=== PATIENT | female | born 1940 | race Caucasian/White ===

== ENCOUNTER → 2020-07-28 11:03 | Outpatient (BNVA) | payer SELFPAY | PROVIDERS: PCP Internal Medicine; Visit Provider Hospitalist | DX: Z13.89 Encounter for screening for other disorder (principal) ==

== ENCOUNTER → 2020-12-30 13:22 | Outpatient (BNVA) | payer MEDICARE, SELFPAY | PROVIDERS: PCP Internal Medicine; Visit Provider Hospitalist | DX: J30.9 Allergic rhinitis, unspecified (principal); J45.40 Moderate persistent asthma, uncomplicated; I50.22 Chronic systolic (congestive) heart failure | CPT/HCPCS: 99212 ==

== ENCOUNTER → 2021-06-30 14:34 | Outpatient (BNVA) | payer MEDICARE, SELFPAY | PROVIDERS: PCP Internal Medicine; Visit Provider Hospitalist | DX: J45.40 Moderate persistent asthma, uncomplicated (principal); J30.9 Allergic rhinitis, unspecified; I50.22 Chronic systolic (congestive) heart failure; I48.91 Unspecified atrial fibrillation; M85.80 Other specified disorders of bone density and structure, unspecified site; Z95.0 Presence of cardiac pacemaker; Z88.2 Allergy status to sulfonamides; Z88.8 Allergy status to other drugs, medicaments and biological substances; J30.1 Allergic rhinitis due to pollen; Z88.1 Allergy status to other antibiotic agents; Z91.013 Allergy to seafood; Z79.899 Other long term (current) drug therapy | CPT/HCPCS: 99212 ==

== ENCOUNTER → 2022-08-25 09:32 | Outpatient (BNVA) | payer MEDICARE, SELFPAY | PROVIDERS: PCP Internal Medicine; Visit Provider Hospitalist | DX: J45.40 Moderate persistent asthma, uncomplicated (principal); J30.9 Allergic rhinitis, unspecified; I50.22 Chronic systolic (congestive) heart failure; Z79.899 Other long term (current) drug therapy | CPT/HCPCS: Q3014 ==

== ENCOUNTER 2024-10-10 10:21 | Outpatient (AMB) | payer MEDICARE, SELFPAY ==
--- NOTE | 2024-10-10 10:26 | MHC.OFFVIS ---
Vital Signs 10/10/24 10:28 Height 5 ft 3 in BMI Reason not done Patient refused/unable BP 140/72 H Blood Pressure Location Lt brachial Position Sitting Pulse 86 Pulse Source Pulse Oximeter Pulse Oximetry (%) 98 Oxygen Delivery Method Room Air Intake Visit Reasons: Asthma Allergies amoxicillin [Prevpac] Allergy (Severe, Verified 10/10/24 10:33) Rash/Hives clarithromycin [Prevpac] Allergy (Severe, Verified 10/10/24 10:33) Rash/Hives lansoprazole [Prevpac] Allergy (Severe, Verified 10/10/24 10:33) Rash/Hives Cephalosporins Allergy (Severe, Uncoded 10/10/24 10:33) Rash/Hives Fish Allergy (Severe, Uncoded 10/10/24 10:33) Rash/Hives Grass Allergy (Severe, Uncoded 10/10/24 10:33) Rash/Hives Penicillins Allergy (Severe, Uncoded 10/10/24 10:33) Rash/Hives Sulfa Drugs Allergy (Severe, Uncoded 10/10/24 10:33) Rash/Hives Talwin Allergy (Severe, Uncoded 10/10/24 10:33) Rash/Hives Tetanus Toxoid Allergy (Severe, Uncoded 10/10/24 10:33) Rash/Hives HPI Comments Details: The patient is a 84 year-old woman with a known history of moderate persistent asthma in addition to atrial fibrillation. The patient states that she does not want to take inhaled corticosteroid if she can avoid it due to her issues with osteopenia. She had been on Symbicort before. Now she is using Xopenex twice a day. Recently she was seen [facility] for her worsening asthma s ymptoms and congestion. Apparently had a chest x-ray. Now she is feeling more sinus congestion and some sinus headaches. She is not sure if she is having allergies or if she has a upper respiratory illness. Her Xopenex inhaler has been helping. However, she would like something to help with her nasal congestion.he has significant allergies growing up and she did take allergy shots for many years. When she developed atrial fibrillation she has to stop the allergy shots because of the risk reactions and the inability to tolerate epinephrine. Subsequently after that she has been doing okay except more recently she started developing significant a topic dermatitis significant nasal congestion and also developed evidence Raynaud's phenomena along with discoloration her nail beds. She has a positive ROBERT in the past and this brings up the question of scleroderma limited. 04/09/2020 the the patient has a telephone visit. Overall she is doing well from a respiratory status. However, she is concerned about the fall. Usually in the fall she has a worse time. She had been on Symbicort before however because of the atrial fibrillation will take her off it and place her on Xopenex. At this point we can start inhaled cortical steroid with hopes to minimize exacerbations inflammation to the airways. She should continue with Xopenex for now. She continues to follow-up with dermatology regarding her eczema. She knows she has significant allergies. Although, and are allergy blood tests her IgE level significantly elevated but now on other specific allergy exposures were positive. She would need proper skin testing. 07/28/2020 the patient is a telephone visit. Overall she has been doing well from a respiratory status. She did get away on short vacation she forgot to take her allergy medications. Apparently she did well. Therefore she did not restart her medicines. Usually her symptoms are worse during the spring time. We did talk about considering allergy evaluation was the COVID-19 infections subside. At this point the patient is doing well without any other complaints. Her cardiac status is stable as well. 12/30/2020 the patient is here for pulmonary follow-up visit. Overall she is doing okay from a respiratory status. She continues to use her Flovent. She does not have a short-acting beta agonist. At this point she would like to hold off on 1 due to her concerns with the atrial fibrillation. She has follow-up with her negative developer in did have smoking about considering a pacemaker placement. At this point the patient would like to hold off. She is also dealing with congestive heart failure. She was started on diuretics regularly. Her lower extremity edema has improved. However, she did stand up in became flushed due to lower blood pressures. She also has had electrolyte derangements from diuretics in the past. In regards of her allergies she continues to take her singular and also fluticasone in the Astelin nasal spray. This has been helpful. At this point the patient will undergo blood work. 06/30/2021 the patient is here for a pulmonary follow-up visit. Since we last spoke she did undergo an ablation and a pacemaker placement. She still does complaint of shortness of breath. We did go for brief walking oximetry in the patient maintain a pulse ox of 98% and heart rate in the 100s. Patient now is paste. She is still in AFib based on her negative developer. She continues on the Flovent with good effect. She does avoid her short-acting beta agonist. She does not always take her Lasix. She does have lower extremity edema. She continues with her allergy medicine. Usually the winter is a good month for her. I did provide her with a peak flow so she can assess her airway resistance specially if she is not sure if her shortness of breath is from her asthma or her underlying cardiac condition. 10/10/2024 the patient is here for a pulmonary follow-up visit. Overall she is doing well. She has been using her Flovent as prescribed. She is also using fluticasone nasal spray as needed. She has continued to singular at nighttime. She no longer takes the Claritin. She has not required her rescue inhaler but she is concerned about her atrial fibrillation and going to rapid ventricular response. Therefore hold off on sending her any prescriptions at this time. She can always call me and I can send her rescue inhaler and we can consider Xopenex. She has been on the Flovent for many years and she tolerated well. I will go ahead and send the generic formulation of it. As far as imaging studies she did have a fall and she had x-rays of her shoulder back in 2023 which I personally reviewed. Demonstrated that she had a pulmonary nodular opacity. I did also compared with the x-ray that she had back from 2015 demonstrating that the nodular density was there before therefore consistent with stable process. The patient has plantar doing well so will hold off on further imaging at this time. She will continue with respiratory medicines will follow-up in a year's time. She has not issues prior to that she will call for an earlier assessment. [facility] Medical History (Updated 10/11/24 @ 09:13 by Francisco Thompson MD) CHF (congestive heart failure) Chronic allergic rhinitis Asthma Family History (Updated 12/30/20 @ 13:42 by Francisco Thompson MD) Other Asthma Social History Patient Tobacco Use Status: Never used Tobacco Review of Systems Const Denies night sweats ENT Denies change in voice, Denies lip swelling, Denies mouth pain, Reports nasal congestion, Reports nasal discharge and Denies tongue swelling Card Denies chest pain, Denies syncope and Denies dyspnea on exertion Resp Reports cough and Denies dyspnea on exertion GI Denies abdominal pain Musc Denies no additional complaints Skin/Breast Denies rash Neuro Denies Neuro-related abnormal movements and Denies syncope Psych Denies no additional complaints Bebo/Lymph Denies easy bleeding and Denies lymphadenopathy Aller/Immun Denies lip swelling and Denies tongue swelling Physical Exam Vital Signs: Last Vital Signs Pulse 86 10/10/24 10:28 BP 140/72 H 10/10/24 10:28 Pulse Ox 98 10/10/24 10:28 Oxygen Delivery Method Room Air 10/10/24 10:28 Const General: alert Neck Neck: Yes normal visual inspection, Yes full ROM and Yes no lymphadenopathy Chest Chest palpation & inspection: normal inspection of the chest Resp Effort & Inspection: normal respiratory effort Auscultation: diminished lung sounds Cardio Rate: regular rate Rhythm: regular rhythm Heart sounds: S1 normal heart sound present and S2 normal heart sound present GI Palpation (GI): Soft to palpation and nontender Auscultation: normal bowel sounds Skin General skin exam: rashes and/or lesions noted Assessment & Plan Assessment & Plan (1) Chronic allergic rhinitis: Code(s): J30.9 - Allergic rhinitis, unspecified Category: Medical (2) Asthma: Code(s): J45.909 - Unspecified asthma, uncomplicated Category: Medical Qualifiers: Asthma complication type: uncomplicated Asthma persistence: persistent Asthma severity: moderate Qualified Code(s): J45.40 - Moderate persistent asthma, uncomplicated (3) CHF (congestive heart failure): Comment: better Code(s): I50.9 - Heart failure, unspecified Category: Medical Qualifiers: Heart failure chronicity: chronic Heart failure type: systolic Qualified Code(s): I50.22 - Chronic systolic (congestive) heart failure Plan continue flovent 110 2 puff BID Consider xopenex as needed Continue claritin and singulair fluticasone nasal spray CXR stable nodule F/U 8-12 months Medications: New levalbuterol tartrate 45 mcg/actuation (Xopenex HFA) 2 puffs inhalation Q6H PRN 15 grams 11RF shortness of breath or wheezing 30 days J45.909 - Unspecified asthma, uncomplicated Changed From fluticasone propionate 110 mcg/actuation (Flovent HFA) 2 puffs PO BID 30 days 12 grams 11RF To fluticasone propionate 110 mcg/actuation 2 puffs PO BID 12 grams 11RF 30 days Refilled fluticasone propionate 50 mcg/actuation 2 sprays intranasal DAILY 15.8 mL 11RF 30 days J31.0 - Chronic rhinitis Coding Level of Care Code Est Pt Level 4 (03430) Diagnoses Chronic allergic rhinitis J30.9 Moderate persistent asthma without complication J45.40 Asthma complication type: uncomplicated Asthma persistence: persistent Asthma severity: moderate Chronic systolic congestive heart failure I50.22 Heart failure chronicity: chronic Heart failure type: systolic Time Spent (min) 16
[2024-10-10 10:28] VITALS: BP 140/72; PULSE 86; O2SAT 98
--- OUTSIDE RECORDS SUMMARY | 2024-10-10 11:38 | XMS_ITS ---
Author Organization [facility] Address [address] [place] [address] Phone Care Team Providers Care Database Security Expert Name Role Phone Elsi Buckley MD Primary Care Provider [phone] [facility] Un[facility] [phone] Plan of Treatment No Plan of Treatment Recorded Assessments Includes: Assessments for all patient encounters No Assessments Recorded Medical Equipment - Implanted Devices Includes: Current and historical Devices No Medical Equipment Recorded Medications Includes: Current and historical Medications Current Medications (continue as prescribed) Acetaminophen 325 MG Oral Capsule 11/23/2022 Provide r: Diagnosis: Last Documented On 3 11:23AM By Jah Lyman ; [facility] Symbicort unknown Inhalation Inhaler 06/20/2018 Prov ider: Diagnosis: Last Documented On 8 1:45PM By Argenis Maxwell ; [facility] Atorvastatin Calcium 10MG Oral Tablet 06/20/2018 Pro vider: Diagnosis: Last Documented On 8 1:52PM By Argenis Maxwell ; [facility] Xarelto 20MG Oral Tablet 06/20/2018 Provider: Diagnosis: Last Documented On 8 1:52PM By Argenis Maxwell ; [facility] Medications Administered Includes: Administered Medications in patient's chart No Administered Medications Recorded Results Includes: Results from 10/10/2023 through 10/10/2024 No Results Recorded For Specified Dates History of Present Illness History of Present Illness not supported for this document type No History of Present Illness Recorded Social History No Social History Recorded - Smoking Status Unknown Medical History Includes: Medical History in patient's chart No Medical History Recorded Family History Includes: Family History in patient's chart No Family History Recorded Review of Systems Review of Systems not supported for this document type No Review of Systems Recorded Mental Status No Mental Status Recorded Functional Status No Functional Status Recorded Physical Exam Physical Exam not supported for this document type No Physical Exam Recorded Allergies Includes: Active, inactive, and resolved Allergies Substance Type Reaction Onset Date Resolved Date Statu s Tetanus Toxoid [MANUAL] Allergy 06/20/2018 Active Last Documented On 8 1:41PM ; [facility], Sulfa Antibiotics Allergy 06/20/2018 A ctive Last Documented On 8 1:41PM ; [facility], seafood Allergy 06/20/2018 Active Last Documented On 8 1:43PM ; [facility], pentamidine Allergy 06/20/2018 Active Last Documented On 8 1:42PM ; [facility]note 3], penicillin [MANUAL] Allergy 06/20/2018 Active Last Documented On 8 1:40PM ; [facility][note 3], Nitrates, Organic Allergy 06/20/2018 A ctive Last Documented On 8 1:41PM ; [facility], mushrooms Allergy 06/20/2018 Active Last Documented On 8 1:42PM ; [facility][note 3], PC Cephalexin Allergy 06/20/2018 Active Last Documented On 8 1:43PM ; [facility], Insurance Includes: Active Insurance Policies Plan Name Member ID Group # Subscriber Relationship Effect jairo Dates - [facility] [id number] Baldev Mitchell Clinical Notes Includes: Signed Clinical Notes starting from 07/23/2022 No Clinical Notes Recorded
--- OUTSIDE RECORDS SUMMARY | 2024-10-10 11:38 | XMS_ITS ---
Care Plan - [facility] Created on: October 10, 2024 Baldev Mead : 1940 Sex: Female Author Organization [facility] Address [address] [place] [address] Phone Care Team Providers Care Lightning Rod Installer Name Role Phone Ina QUINTANA, Elsi Primary Care Provider [phone] [facility] Unavailable [phone]
--- OUTSIDE RECORDS SUMMARY | 2024-10-10 11:38 | XMS_ITS | Clinical Summary ---
Author Organization [facility] Address [address] [place] [id number] Care Team Providers Care Tube Test Technician Name Role Phone Elsi Buckley MD Primary Care Provide r Allergies Active Allergy Reactions Criticality Noted Date Comments Cephalexin 04/09/2018 Sulfa Antibiotics 04/09/2018 Medications Medication Sig Dispensed Refills Start Date End Date Status rivaroxaban (XARELTO) 15 MG TABS tablet Take 20 mg by mouth. 0 Acti ve metoprolol tartrate (LOPRESSOR) 12.5 MG split tablet Take by mouth 2 (two) times a day. 0 Active flecainide (TAMBOCOR) 50 MG tablet Take 50 mg by mouth 2 (two) times a day. 0 Active ATORVASTATIN CALCIUM 20 MG PO TABS Take 20 mg by mouth every evening. 0 Active Budesonide-Formotero l Fumarate (SYMBICORT IN) Inhale into the lungs. 0 Active SENNA CO by Combination route. 0 Active Active Problems Problem Noted Date Diagnosed Date Malignant neoplasm of lower- inner quadrant of right female breast 02/06/2017 Family History Medical History Relation Name Comments Heart disease Father Relation Name Status Comments Father Mother Social History Tobacco Use Types Packs/Day Years Used Date Smoking Tobacco: Never Smokeless Tobacco: Never Alcohol Use Standard Drinks/Week Comments No 0 (1 standard drink = 0.6 oz pur e alcohol) Sex and Gender Information Value Date Recorded Sex Assigned at Not on file Gender Identity Not on file Sexual Orientation Not on file Job Start Date Occupation Industry Not on file Not on file Not on file Last Filed Vital Signs Vital Sign Reading Time Taken Comments Blood Pressure 155/41 04/25/2019 3:07 PM EDT Pulse 71 04/25/2019 3:07 PM EDT Temperature - - Respiratory Rate - - Oxygen Saturation - - Inhaled Oxygen Concentration - - Weight 55.8 kg (123 lb) 04/25/2019 3:06 PM EDT Height 161.3 cm (5' 3.5 ) 04/09/2018 3:29 PM EDT Body Mass Index 21.45 04/09/2018 3:29 PM EDT Plan of Treatment Health Maintenance Due Date Last Done Comments COVID-19 Vaccine (#1) 02/06/1945 Depression Screening 1952 Preventative Health Evaluation 02/06/1958 DTap / Tdap / Td (1 - Tdap) 02/06/1959 Shingrix-Zoster Vaccine (1 of 2) 02/06/1959 Fall Risk Assessment 02/06/2005 Osteoporosis Screening (DEXA Scan) 02/06/2005 RSV Adult > 60+ Yrs or Pregn ant (1 - 1-dose 75+ series) 02/06/2015 Pneumococcal Vaccine (2 of 2 - PPSV23 or PCV20) 07/13/2016 05/18/2016 Influenza Vaccine (#1) 2024 05/15/2017 Hepatitis B Vaccines Aged Out No long er eligible based on patient's age to complete this topic RSV Ped < 20 months Aged Out No longe r eligible based on patient's age to complete this topic Care Teams Tube Test Technician Relationship Specialty Start Date End Date Elsi Buckley MD PCP - General Internal Medicine 01/26/17
--- OUTSIDE RECORDS SUMMARY | 2024-10-10 11:38 | XMS_ITS | Clinical Summary ---
Author Organization [place] [facility] Address [address] [place] [id number] Phone Care Team Providers Care Electronic Typesetting Machine Operator Name Role Phone Ina QUINTANA, Elsi Primary Care Provider [phone] [facility] [phone] Reason for Visit and Chief Complaint Medicare New Patient Plan of Treatment Pending Tests Order Diagnosis Results Due Ordering P audie Follow Up - Appointment 1 Week Oth disp fx of upper end of right humerus, init for clos fx 11/23/22 Ricky Claire MD Last Documented On 3 10:01AM ; [facility] Assessments Includes: Assessments from this encounter No Assessments Recorded Medical Equipment - Implanted Devices Includes: Current Devices No Medical Equipment Recorded Medications Includes: Medications discussed during this encounter and other current Medications Current Medications (continue as prescribed) Acetaminophen 325 MG Oral Capsule 11/23/2022 Provide r: Diagnosis: Last Documented On 3 11:23AM By Jah Lyman ; [facility] Symbicort unknown Inhalation Inhaler 06/20/2018 Prov ider: Diagnosis: Last Documented On 8 1:45PM By Argenis Maxwell ; [facility] Atorvastatin Calcium 10MG Oral Tablet 06/20/2018 Pro vider: Diagnosis: Last Documented On 8 1:52PM By Argenis Maxwell ; [facility] Xarelto 20MG Oral Tablet 06/20/2018 Provider: Diagnosis: Last Documented On 8 1:52PM By Argenis Maxwell ; [facility] Medications Administered Includes: Administered Medications from this encounter No Administered Medications Recorded Vital Signs Includes: Vital Signs from this encounter Vital Name 11/23/2022 11:22A Blood Pressure Sitting (mmHg) 158/79 Pulse Rate-Sitting (bpm) 67 Temp-Temporal 97.1 Height (in) 63 Weight (lb) 120 Body Mass Index 21.3 Body Surface Area 1.6 Oxygen Saturation (%) 99 Last Documented: On 11/23/2022 11:22A M ; [place] [facility], Results Includes: Results discussed during this encounter No Results Recorded For Specified Dates History of Present Illness Includes: History of Present Illness from this encounter No History of Present Illness Recorded Social History No Social History Recorded - Smoking Status Unknown Medical History Includes: Medical History addressed during this encounter No Medical History Recorded Family History Includes: Family History addressed during this encounter No Family History Recorded Review of Systems Includes: Review of Systems from this encounter No Review of Systems Recorded Mental Status Includes: Mental Status from this encounter No Mental Status Recorded Functional Status Includes: Functional Status from this encounter No Functional Status Recorded Physical Exam Includes: Physical Exam from this encounter Allergies Includes: Active Allergies Substance Type Reaction Onset Date Resolved Date Statu s Tetanus Toxoid [MANUAL] Allergy 06/20/2018 Active Last Documented On 8 1:41PM ; [facility] Sulfa Antibiotics Allergy 06/20/2018 A ctive Last Documented On 8 1:41PM ; [facility] seafood Allergy 06/20/2018 Active Last Documented On 8 1:43PM ; [facility] pentamidine Allergy 06/20/2018 Active Last Documented On 8 1:42PM ; [facility] penicillin [MANUAL] Allergy 06/20/2018 Active Last Documented On 8 1:40PM ; [facility] Nitrates, Organic Allergy 06/20/2018 A ctive Last Documented On 8 1:41PM ; [facility] mushrooms Allergy 06/20/2018 Active Last Documented On 8 1:42PM ; [facility] Cephalexin Allergy 06/20/2018 Active Last Documented On 8 1:43PM ; [facility] Encounters Encounter Provider Location Date Check-In Time Check-Out Time Diagnosis Medicare New Patient Ricky Claire MD [place] [facility] 11/24/19 9:40AM 10:08AM Insurance Includes: Active Insurance Policies Plan Name Member ID Group # Subscriber Relationship Effect jairo Dates 1 - [facility] [id number] Baldev Mitchell Clinical Notes Includes: Clinical Notes from this encounter * Progress note Date Encounter Last Documented by 11/23/2022 Medicare New Patient Last docume nted on 11/23/2022; 10:01 AM, Ricky Claire MD; [facility], Current Medication - Atorvastatin Calcium 10MG Oral Tablet 10 MG 0 days, 0 refills - Symbicort unknown Inhalation Inhaler unknown 0 days, 0 refills - Xarelto 20MG Oral Tablet 20 MG 0 days, 0 refills Allergies - Cephalexin - mushrooms - Nitrates, Organic - penicillin [MANUAL] - pentamidine - seafood - Sulfa Antibiotics - Tetanus Toxoid [MANUAL] Physical Findings Chief complaint: Right shoulder pain History of Present Illness: This is an 82-year-old woman who is the 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 We saw her in 2019 for a fracture of her hip. She presents today with her [id number]. 3 days ago she slipped in the bathroom and fell and struck her right shoulder. She had pain in the shoulder. She was seen at [facility] and was found to have a fracture of her right proximal humerus. She was placed in a sling. I spoke with her son. She reports localized pain in the right shoulder. She denies numbness or tingling. Physical exam: Pleasant elderly woman awake alert and oriented with right shoulder pain. There is moderate swelling of the shoulder and right arm. There is ecchymosis on the proximal arm. There is tenderness of the proximal humerus. There is no elbow tenderness. The skin is otherwise intact. Motor and sensory exams are intact. She has pain with right shoulder motion. There is no pain with elbow motion. Imaging: Radiographs of the right shoulder performed at [facility] on 11/20/2022 are reviewed. There is a comminuted moderately displaced fracture of the right proximal humerus involving the surgical neck and greater tuberosity. No dislocation is appreciated. Impression: Fracture right proximal humerus Plan: We discussed the options of surgical and nonsurgical treatment. I suspect she will have some limitation in shoulder motion with surgical or nonsurgical treatment. After discussion with the patient and the family we elected nonsurgical treatment. I fitted her with a shoulder immobilizer. She should wear that full-time for now. I asked her to return in 1 week for reexamination and x-ray AP and Y views of the right shoulder. Plan StartCited - Oth disp fx of upper end of right humerus, init for clos fx Follow Up/Appointment: 1 Week EndCited
--- OUTSIDE RECORDS SUMMARY | 2024-10-10 11:38 | XMS_ITS | Clinical Summary ---
Author Organization [facility] Address [address] [place] [id number] Phone Care Team Providers Care Customer Solutions Coordinator Name Role Phone Ina QUINTANA, Elsi Primary Care Provider [phone] [facility] Unavailable [phone] Reason for Visit and Chief Complaint Established Patient Plan of Treatment Pending Tests Order Diagnosis Results Due Ordering P audie Follow Up - Appointment 3 weeks Oth disp fx of upper end of right humerus, init for clos fx 11/30/22 Ricky Claire MD Last Documented On 3 10:54AM ; [facility] Assessments Includes: Assessments from this encounter No Assessments Recorded Medical Equipment - Implanted Devices Includes: Current Devices No Medical Equipment Recorded Medications Includes: Medications discussed during this encounter and other current Medications Current Medications (continue as prescribed) Acetaminophen 325 MG Oral Capsule 11/23/2022 Provide r: Diagnosis: Last Documented On 3 11:23AM By Jah Lyman ; [facility] Symbicort unknown Inhalation Inhaler 06/20/2018 Prov ider: Diagnosis: Last Documented On 8 1:45PM By Argenis Maxwell ; [facility] Atorvastatin Calcium 10MG Oral Tablet 06/20/2018 Pro vider: Diagnosis: Last Documented On 8 1:52PM By Argenis Maxwell ; [facility] Xarelto 20MG Oral Tablet 06/20/2018 Provider: Diagnosis: Last Documented On 8 1:52PM By Argenis Maxwell ; [facility] Medications Administered Includes: Administered Medications from this encounter No Administered Medications Recorded Vital Signs Includes: Vital Signs from this encounter Vital Name 11/30/2022 10:22A Blood Pressure Sitting (mmHg) 156/76 Pulse Rate-Sitting (bpm) 63 Temp-Temporal 97.2 Height (in) 63 Weight (lb) 122 Body Mass Index 21.6 Body Surface Area 1.6 Oxygen Saturation (%) 99 Last Documented: On 11/30/2022 10:23A M ; [facility] Results Includes: Results discussed during this encounter [...] Active Last Documented On 8 1:41PM ; [facility] Sulfa Antibiotics Allergy 06/20/2018 A ctive Last Documented On 8 1:41PM ; [facility] seafood Allergy 06/20/2018 Active Last Documented On 8 1:43PM ; [facility] pentamidine Allergy 06/20/2018 Active Last Documented On 8 1:42PM ; [facility] penicillin [MANUAL] Allergy 06/20/2018 Active Last Documented On 8 1:40PM ; [facility] Nitrates, Organic Allergy 06/20/2018 A ctive Last Documented On 8 1:41PM ; [facility] mushrooms Allergy 06/20/2018 Active Last Documented On 8 1:42PM ; [facility] Cephalexin Allergy 06/20/2018 Active Last Documented On 8 1:43PM ; [facility] Encounters Encounter Provider Location Date Check-In Time Check-Out Time Diagnosis Established Patient Ricky Claire MD [facility] 12/01/19 10:00AM 10:58AM Insurance Includes: Active Insurance Policies Plan Name Member ID Group # Subscriber Relationship Effect jairo Dates - [facility] [id number] Baldev Mitchell Clinical Notes Includes: Clinical Notes from this encounter * Progress note Date Encounter Last Documented by 11/30/2022 Established Patient Vic meehan on 11/30/2022; 10:54 AM, Ricky Claire MD; [facility], Current Medication - Acetaminophen 325 MG Oral Capsule 0 days, 0 refills - Atorvastatin Calcium 10MG Oral Tablet 10 MG 0 days, 0 refills - Symbicort unknown Inhalation Inhaler unknown 0 days, 0 refills - Xarelto 20MG Oral Tablet 20 MG 0 days, 0 refills Allergies - Cephalexin - mushrooms - Nitrates, Organic - penicillin [MANUAL] - pentamidine - seafood - Sulfa Antibiotics - Tetanus Toxoid [MANUAL] Physical Findings - Vitals taken 11/30/2022 10:22 am BP-Sitting 156/76 mmHg Pulse Rate-Sitting 63 bpm Temp-Temporal 97.2 F Height 63 in Weight 122 lbs Body Mass Index 21.6 kg/m2 Body Surface Area 1.6 m2 Oxygen Saturation 99 % Chief complaint: Follow-up fracture right proximal humerus History of Present Illness: This is an 82-year-old woman who is the mother of one of our radiologist. She fell and sustained a moderately displaced fracture of the right proximal humerus on 11/20/2022. I saw her on 11/23/2022. Nonsurgical treatment was selected and she is in a shoulder immobilizer. She has no complaints today. Physical exam: The patient still has moderate discomfort with motion of the right shoulder. Skin and neurovascular exams are intact. Imaging: Radiographs of the right shoulder taken today are compared to the prior images. There is a fracture of the surgical neck and greater tuberosity with moderate displacement. There has been no significant change in fracture reduction compared to the initial images. AP, internal rotation, Y-view, and axillary views of the shoulder are included. The glenohumeral joint appears to be reduced. Impression: Fracture right proximal humerus Plan: The patient will continue with the shoulder immobilizer full-time for an additional 3 weeks. She will return at that time for reexamination and x-ray AP and internal rotation views of the right shoulder. We will probably discontinue the sling and begin physical therapy at that time. Plan StartCited - Oth disp fx of upper end of right humerus, init for clos fx Follow Up/Appointment: 3 weeks EndCited
--- OUTSIDE RECORDS SUMMARY | 2024-10-10 11:38 | XMS_ITS | Clinical Summary ---
Author Organization [facility] Address [address] [place] [address] Phone Care Team Providers Care Quality Control Name Role Phone Elsi Buckley MD Primary Care Provider [phone] [facility] Unavailable [phone] Reason for Visit and Chief Complaint Established Patient Plan of Treatment No Plan of Treatment Recorded Assessments Includes: Assessments from this encounter No Assessments Recorded Medical Equipment - Implanted Devices Includes: Current Devices No Medical Equipment Recorded Medications Includes: Medications discussed during this encounter and other current Medications Current Medications (continue as prescribed) Acetaminophen 325 MG Oral Capsule 11/23/2022 Provide r: Diagnosis: Last Documented On 3 11:23AM By Jah Lyman ; [facility] Symbicort unknown Inhalation Inhaler 06/20/2018 Prov ider: Diagnosis: Last Documented On 8 1:45PM By Argenis Maxwell ; [facility] Atorvastatin Calcium 10MG Oral Tablet 06/20/2018 Pro vider: Diagnosis: Last Documented On 8 1:52PM By Argenis Maxwell ; [facility] Xarelto 20MG Oral Tablet 06/20/2018 Provider: Diagnosis: Last Documented On 8 1:52PM By Argenis Maxwell ; [facility] Medications Administered Includes: Administered Medications from this encounter No Administered Medications Recorded Vital Signs Includes: Vital Signs from this encounter Vital Name 07/07/2019 10:26A Height (in) 63 Weight (lb) 112 Body Mass Index (kg/m2) 19.8 Body Surface Area (m2) 1.5 Last Documented: On 07/07/2019 10:26A M ; [facility], Results Includes: Results discussed during this encounter [...] Active Last Documented On 8 1:41PM ; [facility] Sulfa Antibiotics Allergy 06/20/2018 A ctive Last Documented On 8 1:41PM ; [facility] seafood Allergy 06/20/2018 Active Last Documented On 8 1:43PM ; [facility] pentamidine Allergy 06/20/2018 Active Last Documented On 8 1:42PM ; [facility], penicillin [MANUAL] Allergy 06/20/2018 Active Last Documented On 8 1:40PM ; [facility] Nitrates, Organic Allergy 06/20/2018 A ctive Last Documented On 8 1:41PM ; [facility] mushrooms Allergy 06/20/2018 Active Last Documented On 8 1:42PM ; [facility] Cephalexin Allergy 06/20/2018 Active Last Documented On 8 1:43PM ; [facility], Encounters Encounter Provider Location Date Check-In Time Check-Out Time Diagnosis Established Patient Mat Childs MD [facility] 019 9:51AM 10:18AM Insurance Includes: Active Insurance Policies Plan Name Member ID Group # Subscriber Relationship Effect jairo Dates 1 - [facility] [id number] Baldev Mead Self Clinical Notes Includes: Clinical Notes from this encounter No Clinical Notes Recorded
--- OUTSIDE RECORDS SUMMARY | 2024-10-10 11:38 | XMS_ITS | Clinical Summary ---
Author Organization [facility] Address [phone] [employer] [address] Care Team Providers Care Construction Checker Name Role Phone Elsi Buckley MD Primary Care Provide r Allergies Active Allergy Reactions Criticality Noted Date Comments Cephalexin 04/09/2018 Pentazocine-Aspirin Other (See Comments) 2008 fainting Sulfa (Sulfonamide Antibiotics) 04/09/2018 Tetanus Toxoid Adsorbed Unknown 02/23/2009 Medications Medication Sig Dispensed Refills Start Date End Date Status atorvastatin (LIPITOR) 10 MG tablet Take 20 mg by mouth daily. Active senna (SENNA CONCENTRATE) 8.6 mg tablet Take 8.6 mg by mouth daily. Active budesonide-formoterol (SYMBICORT) 160-4.5 mcg/actuation inhaler Inhale 160 mcg into the lungs daily. Active flecainide (TAMBOCOR) 50 MG tablet Take 150 mg by mouth daily. Active metoprolol tartrate (LOPRESSOR) 25 MG tablet Take 12.5 mg by mouth daily. Active rivaroxaban (XARELTO) 15 mg Tab Take 20 mg by mouth daily. Active polyethylene glycol (MIRALAX) 17 gram packet Take 17 g by mouth daily. Active cholecalciferol (VITAMIN D3) 50,000 unit tabletIndications:take 1 tab every 2 weeks Take by mouth once a week. 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 Not on kirit e 12/16/2022 Are you concerned about learning? Not on file 12/16/2022 No 12/16/2022 No 12/16/2022 Digital Access Answer Date Recorded No 01/07/2023 No 01/07/2023 Reliable internet access at home? Not on file 01/07/2023 Device with a working camera? Not on file Sex and Gender Information Value Date Recorded Sex Assigned at Not on file Gender Identity Not on file Sexual Orientation Not on file Last Filed Vital Signs Vital Sign Reading Time Taken Comments Blood Pressure 180/67 11/29/2018 1:20 PM EDT Pulse 51 11/29/2018 1:20 PM EDT Temperature - - Respiratory Rate - - Oxygen Saturation - - Inhaled Oxygen Concentration - - Weight 55.3 kg (122 lb) 11/29/2018 1:20 PM EDT Height 160 cm (5' 3 ) 11/29/2018 1:20 PM EDT Body Mass Index 21.61 11/29/2018 1:20 PM EDT Plan of Treatment Health Maintenance Due Date Last Done Comments BLOOD PRESSURE 1940 HEPATITIS B SCREENING 02/06/1958 PNEUMOCOCCAL VACCINES (50+ years) (1 of 2 - PCV) 02/06/1959 ZOSTER VACCINES (1 of 2) 02/06/1990 OSTEOPOROSIS SCREENING INITIAL (ONE-TIME) 02/06/2005 CREATININE LEVEL 11/30/2019 11/29/2018 DEPRESSION SCREENING 11/30/2019 11/29/2018 INFLUENZA VACCINE (#1) 2024 , 05/31/2022, 06/07/2021, Additional history exists COVID-19 VACCINE ( season) 2024 05/15/2023, 05/08/2022, 12/13/2021, Additional history exists RSV VACCINE Completed 06/20/2023 HEPATITIS A VACCINES Aged Out No long er eligible based on patient's age to complete this topic HEPATITIS B VACCINES Aged Out No long er eligible based on patient's age to complete this topic HIB VACCINES Aged Out No longer eligi ble based on patient's age to complete this topic MENINGOCOCCAL VACCINES (ACWY) Aged Out No longer eligible based on patient's age to complete this topic Medical Devices Not on file Procedures Procedure Name Priority Date/Time Associated Diagnosis Comments CREATININE/EGFR Routine 11/29/2018 2:34 PM EDT Age related osteoporosis, unspecified pathological fracture presence from Last 3 Months or Most Recently Relevant to Health Maintenance Results * (ABNORMAL) Creatinine/eGFR (11/29/2018 2:34 PM EDT) CREATININE 1.01 0.50 - 1.20 mg/dL [facility] EGFR 53(L) >59 mL/min/1.7 3m2 [facility] Comment:If patient is black, multiply result by 1.159. Estimated glomerular filtration rate calculated using the CKD-EPI equation. Blood 11/29/2018 2:34 PM EDT 11/29/2018 8:05 PM EDT Jelena Olivares MD LAB BLOOD ORDERABLES [facility] [address] [place] [phone] from Last 3 Months or Most Recently Relevant to Health Maintenance Care Teams Construction Checker Relationship Specialty Start Date End Date Elsi Buckley MD PCP - General Geriatric Psychiatry 08/27/18 Additional Source Comments The information contained in this document represents components of the legal health record. It is not the complete legal health record.[facility]
--- OUTSIDE RECORDS SUMMARY | 2024-10-10 11:38 | XMS_ITS | Clinical Summary ---
Author Organization [address] [place] [address] [place] [phone] Phone Care Team Providers Care Sheet Roller Operator Name Role Phone Elsi Buckley MD Primary Care Provider [phone] Allergies Active Allergy Reactions Criticality Noted Date Comments Cephalexin 12/09/2020 Cephalosporins 11/13/2017 Codeine 12/09/2020 Esomeprazole Magnesium 01/22/2007 vaginal bleeding Fish Derived 01/22/2007 anaphalaxis Grass Pollen-Red Top, Standard 02/18 Mushroom 12/09/2020 Omeprazole 01/22/2007 vaginal bleeding Other 12/09/2020 Organic Nitrates Penicillins 11/13/2017 Pentazocine Lactate 01/22/2007 anaphalaxis Shellfish Derived 12/09/2020 Simvastatin 12/09/2020 Sulfa (Sulfonamide Antibiotics) 10/11 Tetanus Toxoid 01/22/2007 lympadenopathy Medications acetaminophen (TYLENOL) 325 mg tablet Take 650 mg by mouth every 6 hours as needed. Active albuterol HFA (PROAIR HFA ; PROVENTIL HFA ; VENTOLIN HFA) 90 mcg/actuation inhaler Inhale 2 Puffs into the lungs every 4 hours as needed. Active calcium carbonate-vitam in D3 600 mg-5 mcg (200 unit) per tablet Take 1 tablet by mouth daily. 04/03/2017 Active cyanocobalamin (VITAMIN B-12) 2,000 mcg tablet Take 1 Tab by mouth daily. 11/16/2017 Active folic acid (FOLVITE) 1 mg tablet TAKE 1 TABLET DAILY 11/25/2018 Active furosemide (LASIX) 20 mg tablet TAKE 1/2 TABLET BY MOUTH DAILY - PT ONLY TAKES NEEDED FOR LEG EDEMA 07/28/2022 Active metoprolol succinate (TOPROL-XL) 25 mg 24 hr tablet TAKE 1 TABLET BY MOUTH EVERY DAY 05/12/2024 Active senna (SENOKOT) 8.6 mg tablet Take 8.6 mg by mouth daily. 10/23/2016 Active Xarelto 15 mg tablet TAKE 1 TABLET BY MOUTH DAILY. WITH LARGEST MEAL OF THE DAY 90 tablet 2 07/16/2024 Active chlorthalidone (HYGROTON) 25 mg tablet TAKE 1 TABLET BY MOUTH EVERY DAY 90 tablet 3 07/16/2024 Active Active Problems Problem Noted Date Diagnosed Date Coronary artery disease 09/14/2022 Overview (07/04/2024): Coronary disease with a catheterization 2015. She had moderate nonocclusive disease. The cath was done due to a stress-induced cardiomyopathy. She has been on a statin dose but did stop it due to muscle aches. She generally does eat fairly healthy from a diet standpoint. She has no active angina. Last Assessment & Plan: No active angina currently. No signs of infarct by twelve-lead ECG criteria. We discussed potentially using a drug such as Repatha if she cannot tolerate a statin. She will continue a healthy diet and we will recheck a lipid profile. Continue metoprolol and Xarelto. Second degree AV block, Mobitz type I 09/14/2022 Overview (07/04/2024): Type I second-degree AV block. Pacemaker in place. Previously has been placed in a dual-chamber mode but did not do well with ventricular pacing. She was reprogrammed to in early 2021 VVI to allow intrinsic conduction and despite a very long AV delay which is not physiologic she does tend to feel better this way. Last Assessment & Plan: Currently in atrial fibrillation with variable conduction and intermittent demand pacing. Anticoagulated with Xarelto and tolerating well with no bleeding. Continue to monitor A-fib burden and ventricular response through pacemaker recordings. Closed fracture of left hip 06/20/2018 Helicobacter pylori gastritis 04/18/2018 Atrophic gastritis 04/08/2018 Chronic lower back pain 02/25/2018 Constipation 11/13/2017 Asthma 04/26/2017 Allergic rhinitis 04/03/2017 Restrictive lung disease 04/03/2017 Hyponatremia 03/05/2017 Paroxysmal atrial fibrillation 02/19/2017 Overview (07/04/2024): Long history of paroxysmal atrial fibrillation.She is status post ablation in [place] in 2016. After recurrent arrhythmias she went to [place] and had an ablation by Dr. Vicente. She had an implantable loop recorder in for a few years and has had some intermittent episodes. She has had more frequent atrial fibrillation lately but after having a pacemaker placed for sinus node dysfunction and being on metoprolol she is reasonably rate controlled and has elected not to pursue additional rhythm control. [id number] is of 4 for age, hypertension and gender. She is on Xarelto with good tolerance. She had some nosebleeds but did not elect to proceed with watchman device. Last Assessment & Plan: I will continue to leave her device in a VVI mode and allow her to have periods of Wenckebach to allow intrinsic QRS complexes. In an ideal world she would have left bundle pacemaker which she has over 10 years of battery longevity and feels fairly well so there is not a compelling reason to proceed to an upgrade of the device. She will continue with Xarelto but I told her we could always place a watchman if she has more bleeding issues. Hypertension 02/16/2017 Overview (07/04/2024): Last Assessment & Plan: Normotensive on current medicines and diet. 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 No signs or symptoms of heart failure or recurrent LV dysfunction. Continues to be on a modest dose of metoprolol but no other afterload reduction. Continue to monitor for any recurrence. Syncope 11/18/2015 Eczema 08/27/2015 Encounters Date Type Department Care Team Description 09/11/2024 2:30 PM EST Ancillary Procedure [facility] - [address] [facility] [address] [place] [address] from Last 3 Months Immunizations Name Administration Dates Next Due Influenza trivalent, 0.5mL (Fluad) 65yo and olde r 05/15/2017 Influenza trivalent, 0.5mL, preservative free (Fluarix; FluLaval; Fluzone) ages 6mo and older (Afluria) 3 years and older 05/26/2016,05/13/2015 Pneumococcal conjugate 13 va lent (Prevnar 13, PCV13) 2mo and older 05/18/2016 Surgical History Surgery Date Site/Laterality Comments OTHER SURGICAL HISTORY PROCEDURE: NV DILATION & CURETTAGE DX&/THER NONOBSTETRIC OTHER SURGICAL HISTORY PROCEDURE: NV LIG/TRNSXJ FLP TUBE ABDL/VAG APPR UNI/BI OTHER SURGICAL HISTORY PROCEDURE: ARTHROSCOPY PROCEDURE NEC; COMMENT: right knee MASTECTOMY 01/2009 Bilateral PROCEDURE: HISTORICAL MASTECTOMY; COMMENT: Bilateral TUBAL LIGATION PROCEDURE: HISTORICAL TUBAL LIGATION Medical History Medical History Date Comments Allergic rhinitis 04/03/2017 DX:Allergic rh initis Anemia 02/02/2017 DX:Anemia Asthma 04/26/2017 DX:Asthma Atrophic gastritis 04/08/2018 DX:Atrophic g astritis Benign paroxysmal positional vertigo 05/18/2016 DX:Benign paroxysmal positional vertigo Chronic kidney disease 02/22/2017 DX:Chroni c kidney disease Chronic lower back pain 02/25/2018 DX:Chron ic lower back pain Constipation 11/13/2017 DX:Constipation Eczema 08/27/2015 DX:Eczema Gastroesophageal reflux disease 02/02/2017 DX:Gastroesophageal reflux disease Helicobacter pylori gastritis 04/18/2018 DX :Helicobacter pylori gastritis Hemorrhoids 11/02/2016 DX:Hemorrhoids History of bilateral mastectomy 01/24/2016 DX:History of bilateral mastectomy History of breast cancer 04/26/2017 DX:Hist ory of breast cancer; COMMENT: Cristhian masectomy Hyperlipidemia 02/02/2017 DX:Hyperlipidemi a Hypertension 02/16/2017 DX:Hypertension Hyponatremia 03/05/2017 DX:Hyponatremia Osteoporosis 04/26/2017 DX:Osteoporosis Paroxysmal atrial fibrillati on (CMS/HCC) 02/19/2017 DX:Paroxysmal atrial fibrill ation (HCC) Raynaud's disease 11/02/2016 DX:Raynaud's d isease Restrictive lung disease 04/03/2017 DX:Rest rictive lung disease 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 DX:Sleep t error disorder Stress-induced cardiomyopathy 02/18/2016 DX :Stress-induced cardiomyopathy Syncope 11/18/2015 DX:Syncope Vitamin D deficiency 11/02/2016 DX:Vitamin D deficiency Anemia 02/02/2017 Hypertension 02/16/2017 Family History Medical History Relation Name Comments Heart attack Father No Known Problems Mother Relation Name Status Comments Daughter Alive Father Mother Son Alive Social History Tobacco Use Types Packs/Day Years Used Date Smoking Tobacco: Never Smokeless Tobacco: Never Alcohol Use Standard Drinks/Week Comments No 0 (1 standard drink = 0.6 oz pur e alcohol) Comments Unknown Sex and Gender Information Value Date Recorded Sex Assigned at Not on file Legal Sex Female 3:46 AM EST Gender Identity Not on file Sexual Orientation Not on file Obstetrics History Last Filed Vital Signs Vital Sign Reading Time Taken Comments Blood Pressure 120/68 03/11/2024 2:26 PM EDT Pulse 66 03/11/2024 2:26 PM EDT Temperature - - Respiratory Rate - - Oxygen Saturation - - Inhaled Oxygen Concentration - - Weight 55.1 kg (121 lb 6.4 oz) 03/11/2024 2:26 P M EDT Height 160 cm (5' 3 ) 08/22/2023 2:41 PM EST Body Mass Index 21.51 08/22/2023 2:41 PM EST Plan of Treatment Health Maintenance Due Date Last Done Comments DTaP,Tdap,and Td Vaccines (1 - Tdap) 02/06/1959 Depression Screening 07/22/2022 Falls Risk Assessment 07/22/2022 Medicare Annual Wellness Visit 07/22/2022 Social Influencers of Health Screening 07/22/2022 Hypertension/CHF/CAD Annual BMP Blood Test 09/01/2022 09/01/2021 Cholesterol Screening (Lipid Panel) 09/01/2026 09/01/2021 Osteoporosis Screening (Bone Density Screening) 10/18/2028 10/18/2018 RSV Immunization Patients 60+ Years Old Completed 06/20/2023 Zoster Vaccines Completed 12/19/2023, 08/09/2023 COVID-19 Vaccine Completed 04/25/2024, 10/2022, 05/08/2022, Additional history exists Influenza Vaccine Completed 05/27/2024, , 05/31/2022, Additional history exists Pneumococcal Vaccine: 50+ Years Completed 06/24/2024, 05/18/2016 HIB Vaccines Aged Out No longer eligi ble based on patient's age to complete this topic HPV Vaccines Aged Out No longer eligi ble based on patient's age to complete this topic Hepatitis A Vaccines Aged Out No long er eligible based on patient's age to complete this topic Hepatitis B Vaccines Aged Out No long er eligible based on patient's age to complete this topic IPV Vaccines Aged Out No longer eligi ble based on patient's age to complete this topic MMR Vaccines Aged Out No longer eligi ble based on patient's age to complete this topic Meningococcal ACWY Vaccine Aged Out N o longer eligible based on patient's age to complete this topic Meningococcal B Vacine Aged Out No lo nger eligible based on patient's age to complete this topic RSV Immunization Patients Under 20 months Aged Out No longer eligible based on patient's age to complete this topic Varicella Vaccines Aged Out No longer eligible based on patient's age to complete this topic Medical Devices Implanted Type Area Injection Machine Operator Device Identifier Shelf Expiration Date Model / Serial / Lot Medt-Card Samra Xt Dr Rose [id number] Implanted:11/2020 (Quantity not on file) Cardiac Pacemaker [employer] - CARDIAC RHYTH-CRDM SAMRA XT DR ROSE [id number] / [id number] / Procedures Procedure Name Priority Date/Time Associated Diagnosis Comments CARDIAC DEVICE CHECK- REMOTE- MURJ Routine 09/11/2024 2:25 PM EST ANNUAL BMP BLOOD TEST Routine 09/01/2021 LIPID PANEL Routine 09/01/2021 [facility] DEXA AXIAL SKELETON Routine 10/18/2018 12:50 PM EST Other specified disorders of bone density and structure, unspecified site from Last 3 Months or Most Recently Relevant to Health Maintenance Results * Cardiac device check - Remote- MURJ (09/11/2024 2:25 PM EST) Date Time Interrogation Session [id number] CV DEVICE CHECK Type Interrogation Session Remote CV DEVICE CHECK Implantable Pulse Generator Injection Machine Operator MDT CV DEVICE CHECK Implantable Pulse Generator Type IPG CV DEVICE CHECK Implantable Pulse Generator Model Samra XT DR MRI [id number] CV DEVICE CHECK Implantable Pulse Generator Serial Number [id number] CV DEVICE CHECK Implantable Pulse Generator Implant Date 20210114 CV DEVICE CHECK Battery Remaining Longevity 115.0 CV DEVICE CHECK Battery Voltage 2.990 CV D EVICE CHECK Battery EMERGENCY CARE TECH Trigger 2.625 CV DEVICE CHECK Battery Status Middle of Service CV DEVICE CHECK Speedy Statistic RA Percent Paced 22.00 CV DEVICE CHECK Speedy Statistic RV Percent Paced 87.07 CV DEVICE CHECK Atrial Tachy Statistic AT/AF [place] Percent 68.20 CV DEVICE CHECK Lead Channel Sensing Intrinsic Amplitude 1.875 CV DEVICE CHECK Lead Channel Setting Sensing Sensitivity 0.30 CV DEVICE CHECK Lead Channel Impedance Value 551 CV DEVICE CHECK Lead Channel Pacing Threshold Amplitude 0.875 CV DEVICE CHECK Lead Channel Pacing Threshold Pulse Width 0.4 CV DEVICE CHECK Lead Channel RA Pacing Threshold Date 2021-04-17 CV DEVICE CHECK Lead Channel Setting Pacing Amplitude 3.250 CV DEVICE CHECK Lead Channel Setting Pacing Pulse Width 0.4 CV DEVICE CHECK Lead Channel Sensing Intrinsic Amplitude 3.875 CV DEVICE CHECK Lead Channel Setting Sensing Sensitivity 1.20 CV DEVICE CHECK Lead Channel Impedance Value 475 CV DEVICE CHECK Lead Channel Pacing Threshold Amplitude 0.625 CV DEVICE CHECK Lead Channel Pacing Threshold Pulse Width 0.4 CV DEVICE CHECK Lead Channel RV Pacing Threshold Date 2024-09-02 CV DEVICE CHECK Lead Channel Setting Pacing Amplitude 1.500 CV DEVICE CHECK Lead Channel Setting Pacing Pulse Width 0.4 CV DEVICE CHECK Speedy Setting Mode (NBG Code) DDDR CV DEVICE CHECK Speedy Setting Lower Rate Limit 60 CV DEVICE CHECK Speedy Setting AT Mode Switch Rate 171 CV DEVICE CHECK Speedy Setting Maximum Tracking Rate 130 CV DEVICE CHECK Speedy Setting Maximum Sensor Rate 110 CV DEVICE CHECK Speedy Setting PAV Delay 220 CV DEVICE CHECK Speedy Setting KEN Delay 210 CV DEVICE CHECK Zone Setting Type Category AT/AF CV DEVICE CHECK Rate 171 CV DEVICE CHECK Therapies Some Rx Off CV DEVIC E CHECK Zone Setting Status Monitor CV DEVICE CHECK Zone ID 2 CV DEVICE CHECK Zone Setting Type Category VT CV DEVICE CHECK Rate 150 CV DEVICE CHECK Zone Setting Status ENABLED CV DEVICE CHECK Zone ID 6 CV DEVICE CHECK Date of Service 2024-09-13 CV DEVICE CHECK Anatomical Region Laterality Modality Device Interroga tion 09/03/2024 12:0 0 AM EST Impressions 09/11/2024 12:55 PM EST Normal Remote: No Events * Normal Device Function * Alerts or events: None * Battery: OK, 9.58 yrs * Sensing, impedance and thresholds reviewed * Programmed parameters reviewed * Presenting rhythm reviewed * Heart Rate Histograms reviewed * No significant changes noted *Stable burden AF Narrative Procedure Note René Lim MD - 09/11/2024 IMPRESSION: Normal Remote: No Events * Normal Device Function * Alerts or events: None * Battery: OK, 9.58 yrs * Sensing, impedance and thresholds reviewed * Programmed parameters reviewed * Presenting rhythm reviewed * Heart Rate Histograms reviewed * No significant changes noted *Stable burden AF René Lim MD CV IMPLANTABLE CARDIAC DEVICE PROCEDURES Final Result * Annual BMP Blood Test (09/01/2021) [facility] Annual BMP Blood Test Abstracted Historical Provider HEALTH MAINTENANCE Final Result * Lipid panel (09/01/2021) [facility] LDL/HDL Ratio 2 0 - 4 Triglycerides 91 0 - 150 mg/dL Cholesterol 175 0 - 200 mg/dL HDL 75 >=40 mg/dL LDL Cholesterol 82 0 - 100 mg/dL Blood Venous blood specimen / Unknown Historical Provider LAB BLOOD ORDERABLES Yakelin l Result * ESTER DEXA AXIAL SKELETON (10/18/2018 12:50 PM EST) Anatomical Region Laterality Modality Mammography 10/18/2018 11:5 2 AM EST Narrative 10/18/2018 12:50 PM EST [facility] Diagnostic Imaging Department [address] [place] [id number] Patient: ??FIONA MEAD ?/Age/Sex: 1940 - 78 - F Unit#: ??[id number] ? Location/Status: ??SPDIMAM/REG CLI ? Mnemonic/Ordering Site: ??MAMDEXAAX/SPMAM Ordering Physician: ??MACK TAI MD [facility] Dexa Axial Skeleton - 10/18/18 1234 HISTORY: ??The patient is a 78-year-old postmenopausal female with clinical concern for metabolic bone disease. The patient is undergone previous left hip surgery. FINDINGS: ??Dual energy x-ray absorptiometry of the lumbar spine and right femur is performed. The mean bone mineral density at L1-2 is 1.023 gm/cm2 which is 80% of that of young normals and 113% of that of age matched controls. This yields a T-score of -1.2 and a Z-score of 1.0 which is diagnostic of osteopenia. The mean bone mineral density of the right femur is 0.886 gm/cm2 which is 88% of that of young normals and 121% of that of age matched controls. ??This yields a T-score of -1.0 and a Z-score of 1.2 and there is therefore no evidence of osteoporosis or osteopenia here. However, the T-score of the right femoral neck is -2.2 which is diagnostic of osteopenia. IMPRESSION: 1. Osteopenia. ??There has been an increase of 3.0% in bone mineral density in the lumbar spine since the prior examination of 07/31/2017. ??There has been an increase of 2.9% in bone mineral density in the right femur. 2. FRAX analysis yields a 10-year probability of major osteoporotic fracture of 20.8% and a 10-year probability of hip fracture of 6.2%. Code 30305 Dictating Physician: ??JEFF KEN MD Electronically Signed by: ??JEFF KEN MD Dic Date/Time: ??10/18/18 1247 Sign date/Time: ??10/18/18 1250 Procedure Note Jeff Ken MD - 08/02/2022 [facility] Diagnostic Imaging Department [address] [place] [address] Patient: FIONA MEAD./Age/Sex: 1940 - 78 - F Unit#: [id number] Location/Status: [facility] CLI Mnemonic/Ordering Site: [facility] Ordering Physician: MACK TAI MD [facility] Dexa Axial Skeleton - 10/18/18 - 1234 HISTORY: The patient is a 78-year-old postmenopausal female withclinical concern for metabolic bone disease. The patient is undergone previous lefthip surgery. FINDINGS: Dual energy x-ray absorptiometry of the lumbar spine and rightfemur is performed. The mean bone mineral density at L1-2 is 1.023 gm/cm2 whichis 80% of that of young normals and 113% of that of age matched controls. Thisyields a T-score of -1.2 and a Z-score of 1.0 which is diagnostic of osteopenia. The mean bone mineral density of the right femur is 0.886 gm/cm2 which is88% of that of young normals and 121% of that of age matched controls. Thisyields a T-score of -1.0 and a Z-score of 1.2 and there is therefore no evidenceof osteoporosis or osteopenia here. However, the T-score of the right femoralneck is -2.2 which is diagnostic of osteopenia. IMPRESSION: 1. Osteopenia. There has been an increase of 3.0% in bone mineral densityin the lumbar spine since the prior examination of 07/31/2017. There hasbeen an increase of 2.9% in bone mineral density in the right femur. 2. FRAX analysis yields a 10-year probability of major osteoporoticfracture of 20.8% and a 10-year probability of hip fracture of 6.2%. Code 71020 Dictating Physician: JEFF KEN MD Electronically Signed by: JEFF KEN MD Dic Date/Time: 10/18/18 1247 Sign date/Time: 10/18/18 1250 Mack Tai MD IMG BI PROCEDURES Final Result from Last 3 Months or Most Recently Relevant to Health Maintenance Insurance BLUE [employer]OSS - [place] MEDICARE ADVANTAGE Advance Directives Documents on File Type Date Recorded Patient Eligibility Consultant Expl anation Health Care Decision (hx) 01/15/2021 AD BANGURA DIRECTIVE Health Care Decision (hx) 01/15/2021 AD BANGURA DIRECTIVE Health Care Decision (hx) 01/04/2021 AD BANGURA DIRECTIVE Health Care Decision (hx) 01/04/2021 AD BANGURA DIRECTIVE Health Care Decision (hx) 01/04/2021 AD BANGURA DIRECTIVE Health Care Decision (hx) 01/04/2021 AD BANGURA DIRECTIVE Health Care Decision (hx) 01/04/2021 AD BANGURA DIRECTIVE Health Care Decision (hx) 01/04/2021 AD BANGURA DIRECTIVE Health Care Decision (hx) 01/04/2021 AD BANGURA DIRECTIVE Care Teams Sheet Roller Operator Relationship Specialty Start Date End Date Elsi Buckley MD PCP - General Internal Medicine 06/03/10
--- OUTSIDE RECORDS SUMMARY | 2024-10-10 11:38 | XMS_ITS | Encounter Summary ---
[facility] [address] [place] [address] Care Team Providers Care Vault Cashier Name Role Phone Elsi Buckley MD Primary Care Provider [phone] Encounter Details Date Type Department Care Team (Late st Contact Info) Description 09/11/2024 2:30 PM EST Ancillary Procedure [facility] - [address] [facility] [address] [place] [address] Social History Tobacco Use Types Packs/Day Years Used Date Smoking Tobacco: Never Smokeless Tobacco: Never Alcohol Use Standard Drinks/Week Comments No 0 (1 standard drink = 0.6 oz pur e alcohol) Comments Unknown Sex and Gender Information Value Date Recorded Sex Assigned at Not on file Legal Sex Female 3:46 AM EST Gender Identity Not on file Sexual Orientation Not on file documented as of this encounter Plan of Treatment Not on file documented as of this encounter Procedures Procedure Name Priority Date/Time Associated Diagnosis Comments CARDIAC DEVICE CHECK- REMOTE- MURJ Routine 09/11/2024 2:25 PM EST documented in this encounter Results * Cardiac device check - Remote- MURJ (09/11/2024 2:25 PM EST) Date Time Interrogation Session [id number] CV DEVICE CHECK Type Interrogation Session Remote CV DEVICE CHECK Implantable Pulse Generator Podiatric Assistant MDT CV DEVICE CHECK Implantable Pulse Generator Type IPG CV DEVICE CHECK Implantable Pulse Generator Model [place] XT DR ROSE [id number] CV DEVICE CHECK Implantable Pulse Generator Serial Number [id number] CV DEVICE CHECK Implantable Pulse Generator Implant Date [id number] CV DEVICE CHECK Battery Remaining Longevity 115.0 CV DEVICE CHECK Battery Voltage 2.990 CV D EVICE CHECK Battery [employer] Trigger 2.625 CV DEVICE CHECK Battery Status Middle of Service CV DEVICE CHECK Speedy Statistic RA Percent Paced 22.00 CV DEVICE CHECK Speedy Statistic RV Percent Paced 87.07 CV DEVICE CHECK Atrial Tachy Statistic AT/AF [place] Percent 68.20 CV DEVICE CHECK Lead Channel [...] CV IMPLANTABLE CARDIAC DEVICE PROCEDURES Final Result documented in this encounter Visit Diagnoses Not on filedocumented in this encounter Care Teams Vault Cashier Relationship Specialty Start Date End Date Elsi Buckley MD PCP - General Internal Medicine 06/03/10 documented as of this encounter
--- OUTSIDE RECORDS SUMMARY | 2024-10-10 11:38 | XMS_ITS | Clinical Summary ---
Author Organization [facility] Address [address] [place] [id number] Phone Care Team Providers Care Ground Hand Name Role Phone Ina QUINTANA, Elsi Primary Care Provider [phone] [facility] Un[facility] [phone] Reason for Visit and Chief Complaint Established Patient Plan of Treatment Pending Tests Order Diagnosis Results Due Ordering P audie Follow Up - Appointment 1 Month Oth disp fx of upper end of right humerus, init for clos fx 12/26/22 Ricky Claire MD Last Documented On 3 10:55AM ; [facility] Assessments Includes: Assessments from this encounter No Assessments Recorded Medical Equipment - Implanted Devices Includes: Current Devices No Medical Equipment Recorded Medications Includes: Medications discussed during this encounter and other current Medications Current Medications (continue as prescribed) Acetaminophen 325 MG Oral Capsule 11/23/2022 Provide r: Diagnosis: Last Documented On 3 11:23AM By Jah Lyman ; [facility] Symbicort unknown Inhalation Inhaler 06/20/2018 Prov ider: Diagnosis: Last Documented On 8 1:45PM By Argenis Maxwell ; [facility] Atorvastatin Calcium 10MG Oral Tablet 06/20/2018 Pro vider: Diagnosis: Last Documented On 8 1:52PM By Argenis Maxwell ; [facility] Xarelto 20MG Oral Tablet 06/20/2018 Provider: Diagnosis: Last Documented On 8 1:52PM By Argenis Maxwell ; [facility] Medications Administered Includes: Administered Medications from this encounter No Administered Medications Recorded Vital Signs Includes: Vital Signs from this encounter Vital Name 12/26/2022 10:46A Blood Pressure Sitting (mmHg) 131/71 Pulse Rate-Sitting (bpm) 78 Height (in) 63 Weight (lb) 120 Body Mass Index 21.3 Body Surface Area 1.6 Oxygen Saturation (%) 99 Last Documented: On 12/26/2022 11:02A M ; [facility] [place], Results Includes: Results discussed during this encounter [...] Active Last Documented On 8 1:41PM ; [facility], Sulfa Antibiotics Allergy 06/20/2018 A ctive Last Documented On 8 1:41PM ; [facility] seafood Allergy 06/20/2018 Active Last Documented On 8 1:43PM ; [facility] pentamidine Allergy 06/20/2018 Active Last Documented On 8 1:42PM ; [facility] penicillin [MANUAL] Allergy 06/20/2018 Active Last Documented On 8 1:40PM ; [facility] Nitrates, Organic Allergy 06/20/2018 A ctive Last Documented On 8 1:41PM ; [facility] mushrooms Allergy 06/20/2018 Active Last Documented On 8 1:42PM ; [facility] Cephalexin Allergy 06/20/2018 Active Last Documented On 8 1:43PM ; [facility] Encounters Encounter Provider Location Date Check-In Time Check-Out Time Diagnosis Established Patient Ricky Claire MD [facility] [place], 12/27/19 10:00AM 11:01AM Insurance Includes: Active Insurance Policies Plan Name Member ID Group # Subscriber Relationship Effect jairo Dates - [facility] [id number] Baldev Mead Self Clinical Notes Includes: Clinical Notes from this encounter * Progress note Date Encounter Last Documented by 12/26/2022 Established Patient Last roseanna meehan on 12/26/2022; 10:55 AM, Ricky Claire MD; [facility] [place], Current Medication - Acetaminophen 325 MG Oral [...] Tetanus Toxoid [MANUAL] Physical Findings Chief complaint: Follow-up fracture right proximal humerus History of Present Illness: This is an 82-year-old woman who is the 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 She has a moderately displaced fracture of the right proximal humerus that she sustained on 11/20/2022. She was last seen on 11/30/2022. She has been wearing a shoulder immobilizer. She reports that she is feeling much better. She has been wearing her sling. Physical exam: Right shoulder is nontender. She has minimal discomfort with motion. She has passive elevation to about 100 degrees. Skin and neurovascular exams are intact to the right upper extremity. Imaging: Radiographs of the right shoulder taken today are compared with her prior images. There has been no loss of fracture reduction. Fracture callus is now present. She does have inferior subluxation probably secondary to muscle weakness. Impression: Fracture right proximal humerus Plan: The patient may discontinue the sling. She may gradually increase her activity to tolerance. I prescribed physical therapy to assist with range of motion and strengthening. I asked her to return in 1 month for reexamination and x-ray AP and internal rotation views of the right shoulder. She should not drive until reassessed next month. Plan StartCited - Oth disp fx of upper end of right humerus, init for clos fx Follow Up/Appointment: 1 Month EndCited
--- OUTSIDE RECORDS SUMMARY | 2024-10-10 11:38 | XMS_ITS | Clinical Summary ---
Author Organization [facility] Address [address] [place] [phone] Phone Care Team Providers Care Activity Therapist Name Role Phone Ina QUINTANA, Elsi Primary Care Provider [phone] [facility] Un[facility] [phone] Reason for Visit and Chief Complaint Established Patient Plan of Treatment Pending Tests Order Diagnosis Results Due Ordering P audie Follow Up - Appointment PRN Oth disp fx of upper end of right humerus, init for clos fx 01/25/23 Ricky Claire MD Last Documented On 3 10:16AM ; [facility] Assessments Includes: Assessments from this encounter No Assessments Recorded Medical Equipment - Implanted Devices Includes: Current Devices No Medical Equipment Recorded Medications Includes: Medications discussed during this encounter and other current Medications Current Medications (continue as prescribed) Acetaminophen 325 MG Oral Capsule 11/23/2022 Provide r: Diagnosis: Last Documented On 3 11:23AM By Jah Lyman ; [facility] Symbicort unknown Inhalation Inhaler 06/20/2018 Prov ider: Diagnosis: Last Documented On 8 1:45PM By Argenis Maxwell ; [facility] Atorvastatin Calcium 10MG Oral Tablet 06/20/2018 Pro vider: Diagnosis: Last Documented On 8 1:52PM By Argenis Maxwell ; [facility] Xarelto 20MG Oral Tablet 06/20/2018 Provider: Diagnosis: Last Documented On 8 1:52PM By Argenis Maxwell ; [facility] Medications Administered Includes: Administered Medications from this encounter No Administered Medications Recorded Results Includes: Results discussed during this encounter [...] Active Last Documented On 8 1:41PM ; [facility], Sulfa Antibiotics Allergy 06/20/2018 A ctive Last Documented On 8 1:41PM ; [facility], seafood Allergy 06/20/2018 Active Last Documented On 8 1:43PM ; [facility], pentamidine Allergy 06/20/2018 Active Last Documented On 8 1:42PM ; [facility], penicillin [MANUAL] Allergy 06/20/2018 Active Last Documented On 8 1:40PM ; [facility], Nitrates, Organic Allergy 06/20/2018 A ctive Last Documented On 8 1:41PM ; [facility], mushrooms Allergy 06/20/2018 Active Last Documented On 8 1:42PM ; [facility], Cephalexin Allergy 06/20/2018 Active Last Documented On 8 1:43PM ; [facility] Encounters Encounter Provider Location Date Check-In Time Check-Out Time Diagnosis Established Patient Ricky Claire MD [facility] 01/26/20 23 10:00AM 10:17AM Insurance Includes: Active Insurance Policies Plan Name Member ID Group # Subscriber Relationship Effect jairo Dates 1 - [facility] [id number] Baldev Mitchell Clinical Notes Includes: Clinical Notes from this encounter * Progress note Date Encounter Last Documented by 01/25/2023 Established Patient Last roseanna meehan on 01/25/2023; 10:16 AM, Ricky Claire MD; [facility], Current Medication - Acetaminophen 325 MG Oral [...] that she sustained on 11/20/2022. She was seen last on 12/26/2022. Physical therapy was prescribed at her last visit. She has no complaints today. She has been going to occupational therapy and working on her range of motion. She is having little to no discomfort. Physical exam: The right shoulder has no swelling. There is no tenderness at the fracture site. There is no pain with motion of the shoulder. She has about 15 degrees external rotation and has elevation of about 80 degrees. Neurovascular exam is intact. Imaging: Radiographs of the right shoulder taken today are compared with the prior images. The fracture appears to be healing in satisfactory position with good fracture callus. Impression: Fracture right proximal humerus Plan: The patient may increase her activity to tolerance. She would like to continue with her physical therapy and home exercises. I gave her a prescription for a arden to use for overhead passive motion. She is eager to drive and I think she may do so but I encouraged her to go to a large parking lot initially and practice before going out on the road. She will return if she does not have progressive improvement of her symptoms. Plan StartCited - Oth disp fx of upper end of right humerus, init for clos fx Follow Up/Appointment: PRN EndCited
== END 2024-10-10 10:58 | disposition home or self-care (01) ==
PROVIDERS: PCP Internal Medicine; Visit Provider Hospitalist
DX: J30.9 Allergic rhinitis, unspecified (principal); J45.40 Moderate persistent asthma, uncomplicated; I50.22 Chronic systolic (congestive) heart failure
CPT/HCPCS: 99214

== ENCOUNTER → 2024-10-10 10:21 | Outpatient (BNVA) | payer MEDICARE, SELFPAY | PROVIDERS: PCP Internal Medicine; Visit Provider Hospitalist | DX: J45.40 Moderate persistent asthma, uncomplicated (principal); I50.22 Chronic systolic (congestive) heart failure; J30.9 Allergic rhinitis, unspecified | CPT/HCPCS: 99212 ==